=== PATIENT | male | born 1985 | race Caucasian/White ===

== ENCOUNTER 2023-03-17 18:14 | Emergency (ER) | payer OTHER, SELFPAY ==
[2023-03-17 18:33] VITALS: BP 102/66; PULSE 73; RESP 16; TEMP 36.6; O2SAT 96; BMI 38.7
[2023-03-17] MEDS: Diphth,Pertus(ACell),Tet Adult 0.5 ML SYRINGE IM (19:18)
[2023-03-17] MEDS: Amoxicillin/Potassium Clav 875 MG TABLET PO (19:19)
[2023-03-17] MEDS: Lidocaine HCl 1 % MPF 5 ML VIAL SUBCUT (19:42)
--- NOTE | 2023-03-17 19:42 | PC.NURSE ---
Patient states dog was up to date on Rabies vaccine.
--- NOTE | 2023-03-17 19:47 | ED.ANIMALBIT ---
HPI - Animal Bite General Chief Complaint: Animal Bite Stated Complaint: lac Time Seen by Provider: 03/17/23 19:14 Source: patient Mode of arrival: ambulatory Limitations: no limitations History of Present Illness HPI narrative: 37-year-old male presenting to the ER with complaints of a dog bite/laceration to the right index finger that occurred prior to arrival when he was playing with his dog. He reports that his dog is up-to-date on vaccines including the rabies. He reports that he is unsure if he is up-to-date on tetanus. He reports that he was bleeding from the laceration despite putting duct tape therefore he decided to come here for further evaluation treatment. complaint: animal bite Onset (ago): hour(s) (Prior to arrival) Animal: dog Description of animal: household pet Mechanism: bite Location - Extremities: right: hand (Index finger) Pain description: constant Context: playing with animal Associated symptoms: none Treatments prior to arrival: wound dressing(s), irrigation and pressure Related Data Patient tetanus UTD: No Previous Rx's Medication Instructions Recorded amoxicillin 875 mg-potassium 1 tab PO BID Dog bite 10 days #20 03/17/23 clavulanate 125 mg tablet tabs Allergies Allergy/AdvReac Type Severity Reaction Status Date / Time No Known Allergies Allergy Verified 03/17/23 18:38 Review of Systems Review of Systems: Constitutional : No Fever, No Chills, Cardiovascular : No Chest Pain, No SOB Respiratory : No Dyspnea Gastrointestinal : No abdominal pain Musculoskeletal : No Joint Swelling Skin : positive skin laceration, No Foreign bodies, No rash, No surrounding erythema Neuro : No Weakness, No Numbness/tingling Psych : No SI/HI/thoughts of self injury Yes all other systems are reviewed and are negative [facility] Past Medical History Attestation statement: The following information was validated with the patient. Source: old records reviewed and nursing notes reviewed Medical History Asthma Attention deficit disorder Chronic hepatitis C Closed right ankle fracture Cocaine abuse Impulse control disorder Obesity (BMI 30-39.9) Tobacco abuse Surgical History Ependymoma of brain Social History Social History Advance Directives: No Advance Directives Information Provided: No Physical Exam ED Vital Signs: Vital Signs - 24 hr 03/17/23 18:33 Temperature 97.9 F Pulse Rate 73 Respiratory Rate 16 Blood Pressure 102/66 Pulse Oximetry 96 Oxygen Delivery Method Room Air BMI result Body Mass Index 38.7 Vital signs have been reviewed and all within normal limits Appearance: Alert. Oriented X3. No acute distress. Head: Normal external exam. Normocephalic. Eyes: PERRLA. EOMI. Conjunctiva and sclera normal. Eyelids normal. ENT: Pharynx normal. Uvula midline. Moist mucous membranes. Neck: Normal inspection. Neck supple. FROM. No adenopathy. No meningeal signs. CVS: Normal heart rate and rhythm. Heart sound normal. No murmurs noted. Pulses normal throughout. Respiratory: No respiratory distress. Painless inspiration. Back: Full range of motion noted. Skin: Skin warm and dry. Normal skin color. Normal skin turgor. To right hand index finger dorsal aspect patient has a 3 cm intermediate laceration no active bleeding or foreign bodies or bony tenderness or obvious ligamentous or tendon injury noted. He has full range of motion of the finger hand and wrist joint. No additional rashes/lesions/lacerations noted. Extremities: Extremities exhibit normal range of motion. Extremities nontender. Neuro: Oriented X 3. No motor deficit. No sensory deficit. Reflexes normal. Normal steady gait. CN's II-XII intact bilaterally? Course Course Course Narrative: Patient now status post laceration repair with for simple interrupted sutures placed. Closed loosely. Tetanus updated. No rabies vaccine indicated as patient reports this is his dog and he is up-to-date on rabies vaccine. No imaging indicated at this time. Will DC home with symptomatic treatment antibiotics along with instructions to return in 10-14 days for suture removal and to follow up prior if signs of infection. Patient understands agrees the plan. Medications Administered Discontinued Medications Generic Name Dose Route Start Last Admin Trade Name Freq PRN Reason Stop Dose Admin Amoxicillin/Clavulanate Potassium 875 mg 03/17/23 18:36 03/17/23 19:19 Amoxicillin/Potassium Clav 875 Mg Tablet PO 03/17/23 18:37 875 mg ONCE ONE Administration Bacitracin 1 appl 03/17/23 19:48 03/17/23 19:51 Bacitracin Oint 0.9 Gm Packet TOPICAL 03/17/23 19:49 1 appl ONCE ONE Administration Protocol Diphtheria/Tetanus/Acell Pertussis 0.5 ml 03/17/23 18:36 03/17/23 19:18 Diphth,Pertus(Acell),Tet Adult 0.5 Ml Syringe IM 03/17/23 18:37 0.5 ml .ONCE ONE Administration Lidocaine HCl 5 ml 03/17/23 18:36 03/17/23 19:42 Lidocaine Hcl 1 % Mpf 5 Ml Vial SUBCUT 03/17/23 18:37 5 ml ONCE ONE Administration Procedures Laceration Laceration 1: Site: hand (Right index finger) Side (If applicable): right Size (cm): 3 Description: linear Depth: simple, single layer Local Anesthetic: lidocaine 1% Amount of anesthesia used (mL): 10 Pre-repair: wound explored, irrigated extensively and deep structures intact Skin layer closed with: nylon Size (cm): 4-0 Number of sutures: 4 Technique: simple, interrupted Discharge Plan Discharge Clinical Impression: Dog bite, Laceration of finger Patient Disposition: Home, Self-Care Instructions: Animal Bite (ED), Finger Laceration (ED) Prescriptions: New amoxicillin-pot clavulanate 875-125 mg tablet 1 tab PO BID 10 Days Qty: 20 0RF Referrals: Agneles Olmos PA [Emergency Midlevel Provider] - 10 days (for suture removal) Interventions: ED Discharge Assessment Last Done: 03/17/23 19:54 Discharge Date/Time: 03/17/23 19:56
[2023-03-17] MEDS: Bacitracin Oint 0.9 GM PACKET 1 APPL TOPICAL (19:51)
== END 2023-03-17 19:56 | disposition home or self-care (01) ==
PROVIDERS: Emergency Provider Internal Medicine; PCP Internal Medicine
DX: S61.210A Laceration without foreign body of right index finger without damage to nail, initial encounter (principal); S60.511A Abrasion of right hand, initial encounter; Y93.K9 Activity, other involving animal care; Y93.9 Activity, unspecified; Y92.009 Unspecified place in unspecified non-institutional (private) residence as the place of occurrence of the external cause; Y99.9 Unspecified external cause status; Z23 Encounter for immunization
CPT/HCPCS: 12042; 90471; 90715; 99282; 99284

== ENCOUNTER 2023-07-08 11:48 | Emergency (ER) | payer OTHER, SELFPAY ==
[2023-07-08 11:59] VITALS: BP 144/91; PULSE 85; RESP 18; TEMP 36.3; O2SAT 99; BMI 36.0
--- NOTE | 2023-07-08 12:00 | ED_ITS ---
HPI - General Adult General Chief complaint: Skin/Abscess/Foreign Body Stated complaint: Insect bites lower extremities Time Seen by Provider: 07/08/23 12:02 Source: patient Mode of arrival: ambulatory Limitations: no limitations History of Present Illness HPI narrative: Patient is a 38 year old assigned male at with a history of bipolar disorder and hepatitis C presenting to the emergency department today with multiple bug bites to his lower extremities. Patient states that last night he got bit multiple times by bugs to his lower extremities and his upper extremities. Patient denies any dizziness, lightheadedness, abdominal pain, nausea, vomiting, fever, chills, blurry vision, double vision, loss of vision, chest pain, difficulty breathing, shortness of breath, back pain, night sweats, pain with urination, increased urinary frequency, increased urinary urgency, blood in his urine or stool, syncope or a near syncopal episode, recent trauma or falls, bowel incontinence, bladder incontinence, bowel retention, bladder retention, or any other complaints at this time. Onset (ago): day(s) (1) Location: left, right, upper extremity and lower extremity Severity: mild Severity scale (1-10): 3 Relieving factors: none Exacerbating factors: none Associated symptoms: denies other symptoms Treatments prior to arrival: none Related Data Previous Rx's Medication Instructions Recorded amoxicillin 875 mg-potassium 1 tab PO BID Dog bite 10 days #20 03/17/23 clavulanate 125 mg tablet tabs cephalexin 500 mg capsule 500 mg PO Q6H 7 days #28 caps 07/08/23 doxycycline hyclate 100 mg tablet 100 mg PO BID 7 days #14 tabs 07/08/23 prednisone 20 mg tablet 20 mg PO DAILY 7 days #7 tabs 07/08/23 Allergies Allergy/AdvReac Type Severity Reaction Status Date / Time No Known Allergies Allergy Verified 03/17/23 18:38 Review of Systems Constitutional: Constitutional: Reports no additional constitutional complaints, Denies chills, Denies fever(s) and Denies night sweats Eyes: Eyes: Reports no additional eye complaints, Denies blurry vision, Denies change in vision, Denies diplopia, Denies eye discharge, Denies loss of vision and Denies eye pain ENT: Denies dizziness Cardiovascular: Cardiovascular: Reports no additional cardiovascular complaints, Denies chest pain, Denies lightheadedness, Denies Loss of Consciousness and Denies dyspnea Respiratory: Respiratory: Reports no additional respiratory complaints and De nies dyspnea Gastrointestinal: Gastrointestinal: Reports no additional gastrointestinal complaints, Denies abdominal pain, Denies melena, Denies hematochezia, Denies change in bowel habits and Denies change in stool character Genitourinary: Genitourinary: Reports no additional male genitourinary complaints, Denies hematuria, Denies oliguria, Denies difficulty urinating, Denies dysuria, Denies urinary frequency, Denies urinary hesitancy, Denies urinary incontinence and Denies urinary urgency Musculoskeletal: Musculoskeletal: Reports no additional musculoskeletal complaints, Denies numbness and Denies tingling Integumentary/Breasts: Comments: bug bites to the bilateral upper and lower extremities Neurologic: Denies dizziness, Denies loss of vision, Denies numbness and Denies tingling Psychiatric: Psychiatric: Reports no additional psychiatric complaints Endocrine: Endocrine: Reports no additional endocrine complaints Hematologic/Lymphatic: Hematologic/Lymphatic: Reports no additional hematologic/lymphatic complaints Allergic/Immunologic: Allergic/Immunologic: Reports no additional allergic/immunologic complaints PMFSH Past Medical History Attestation statement: The following information was validated with the patient. Source: old records reviewed and nursing notes reviewed Medical History Asthma Attention deficit disorder Chronic hepatitis C Closed right ankle fracture Cocaine abuse Impulse control disorder Obesity (BMI 30-39.9) Tobacco abuse Surgical History Ependymoma of brain Social History Social History Advance Directives: No Advance Directives Information Provided: No Physical Exam ED Vital Signs: Vital Signs - 24 hr 07/08/23 11:59 Temperature 97.3 F Pulse Rate 85 Respiratory Rate 18 Blood Pressure 144/91 H Pulse Oximetry 99 Oxygen Delivery Method Room Air BMI result Body Mass Index 36.0 Const General: cooperative, no acute distress, alert and awake Nutritional Appearance: well nourished Orientation/consciousness: patient oriented x3 Limitations: no limitations HENMT Head: Yes normal to inspection and Yes atraumatic Ears: hearing grossly normal bilaterally and external ears normal General nose exam: Normal external nose present, no nasal discharge noted and no epistaxis Face and sinus: Yes normal facial exam, No abrasion and No laceration Mouth: Normal oral and palatal mucosa present, no drooling and no muffled voice Eyes General: appearance normal, both eyes and all related structures Periorbital: periorbital findings normal Eyelids: Yes eyelids normal Conjunctivae: conjunctivae normal Pupils: Equal, round and reactive pupils present EOM: EOMs intact bilaterally Neck Neck: Yes normal visual inspection, Yes full ROM and Yes no lymphadenopathy Chest Chest palpation & inspection: normal inspection of the chest Resp Effort & Inspection: normal respiratory effort and able to speak in complete sentences GI Inspection: Yes normal to inspection Neuro General: patient oriented x3 and moves all extremities Cranial nerves: Yes Equal, round and reactive pupils present Cognition (Neuro): normal cognition Motor exam (neuro): 5/5 motor strength present throughout Sensory Exam: Normal double simultaneous stimulation for sensation Coordination: [id number] test normal Extrem Other: small erythematous areas to the bilateral lower legs and bilateral upper arms, 1 small open area to the left lower leg General: Yes full ROM and Yes capillary refill normal Psych Appearance: grossly normal Mental Status: mental status grossly normal Affect: normal affect Attitude: cooperative Thought process: Normal thought process present Thought content: Normal thought content present Insight: Good insight present (Psych) Medical Decision Making Medical Decision Making MDM Narrative: Patient is a 38 year old assigned male at with a history of Bipolar disorder and hepatitis C presenting to the emergency department today with bug bites all over both upper and lower extremities. Patient's physical exam was as noted in the physical exam portion of this chart. Patient's clinical presentation is consistent with localized allergic reactions to bug bites however, will also cover for cellulitis given the small open area and patient's history of hep C. I explained my physical exam findings to the patient. I answered all questions asked by the patient. I stressed the importance of the patient taking his medication as prescribed. I stressed the importance of the patient following up with his primary care provider. I stressed the importance of the patient returning to the emergency department immediately if his symptoms were to worsen or if he were to develop any dizziness, shortness of breath, difficulty breathing, chest pain, blurry vision, loss of vision, nausea, vomiting, abdominal pain, fever, chills, back pain, or any other complaints. Patient verbalized agreement and understanding with this treatment plan and discharge. Differential Diagnosis Differential Diagnoses: The differential diagnosis associated with the presentation includes Localized allergic reaction Cellulitis Bug bite Prescription Management I considered prescription management with: Antibiotic (patient prescribed antibiotics to cover for cellulitis) and Other (patient prescribed an oral corticosteroid to cover localized allergic reaction.) Chronic Conditions Patient?s care impacted by: Other (hepatitis C) Discharge Plan Discharge Clinical Impression: Insect bite, Cellulitis Patient Disposition: Home, Self-Care Instructions: Cellulitis (DC), Insect Bite or Sting (ED) Additional Instructions: Follow up with your primary care provider. Return to the emergency department immediately if your symptoms worsen or if you develop any dizziness, shortness of breath, difficulty breathing, chest pain, blurry vision, loss of vision, nausea, vomiting, abdominal pain, fever, chills, back pain, or any other complaints. Prescriptions: New prednisone 20 mg tablet 20 mg PO DAILY 7 Days Qty: 7 0RF cephalexin 500 mg capsule 500 mg PO Q6H 7 Days Qty: 28 0RF doxycycline hyclate 100 mg tablet 100 mg PO BID 7 Days Qty: 14 0RF No Action amoxicillin-pot clavulanate 875-125 mg tablet 1 tab PO BID 10 Days Qty: 20 0RF Referrals: Po,Florencio Selby MD [Primary Care Provider] - Interventions: ED Discharge Assessment Last Done: 07/08/23 12:25 Discharge Date/Time: 07/08/23 12:26 Print Language: Gabonese
== END 2023-07-08 12:26 | disposition home or self-care (01) ==
LOC: HO.ED 12:08
PROVIDERS: Emergency Provider Emergency Medicine; PCP Internal Medicine
DX: L03.116 Cellulitis of left lower limb (principal); L03.115 Cellulitis of right lower limb; L03.114 Cellulitis of left upper limb; L03.113 Cellulitis of right upper limb; S80.862A Insect bite (nonvenomous), left lower leg, initial encounter; S80.861A Insect bite (nonvenomous), right lower leg, initial encounter; S40.862A Insect bite (nonvenomous) of left upper arm, initial encounter; S40.861A Insect bite (nonvenomous) of right upper arm, initial encounter; W57.XXXA Bitten or stung by nonvenomous insect and other nonvenomous arthropods, initial encounter; Y93.9 Activity, unspecified; Y92.9 Unspecified place or not applicable; Y99.9 Unspecified external cause status
CPT/HCPCS: 99282; 99283

== ENCOUNTER 2025-06-08 14:06 | Emergency (ER) | payer OTHER, SELFPAY ==
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
[2025-06-08 14:17] VITALS: BP 129/77; BP 130/82; PULSE 89; PULSE 92; RESP 18; TEMP 36.7; O2SAT 95; BMI 34.5
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
[2025-06-08 15:33] VITALS: BP 128/68; PULSE 70; RESP 19; TEMP 36.8; O2SAT 97
[2025-06-08] MEDS: Lidocaine HCl 1 % MPF 5 ML VIAL INFILTRATI (15:37)
[2025-06-08] MEDS: Diphth,Pertus(ACell),Tet Adult 0.5 ML SYRINGE IM (15:41)
[2025-06-08 15:59] VITALS: BP 128/68; PULSE 70; RESP 19; TEMP 36.8; O2SAT 97
== END 2025-06-08 16:19 | disposition home or self-care (01) ==
PROVIDERS: Emergency Provider Emergency Medicine Emergency Medical Services
DX: F91.8 Other conduct disorders (principal); S21.112A Laceration without foreign body of left front wall of thorax without penetration into thoracic cavity, initial encounter; X78.1XXA Intentional self-harm by knife, initial encounter; Z23 Encounter for immunization; F31.9 Bipolar disorder, unspecified; B18.2 Chronic viral hepatitis C; F14.10 Cocaine abuse, uncomplicated; Y93.89 Activity, other specified; Y92.039 Unspecified place in apartment as the place of occurrence of the external cause; Y99.9 Unspecified external cause status
CPT/HCPCS: 12031; 71045; 90471; 90715; 99283; 99284; J2003

== ENCOUNTER → 2025-06-08 14:31 | Outpatient (BNV) | payer OTHER, SELFPAY | PROVIDERS: Emergency Provider Emergency Medicine Emergency Medical Services; Visit Provider Radiology Diagnostic Radiology | DX: S21.332A Puncture wound without foreign body of left front wall of thorax with penetration into thoracic cavity, initial encounter (principal) | CPT/HCPCS: 71045 ==